=== PATIENT | male | born 1985 | race Caucasian/White ===

== ENCOUNTER 2018-04-24 00:44 | Emergency (ER) | payer OTHER ==
[2018-04-24] MEDS ORDERED: Proparacaine 0.5% Ophth Soln 15 ML Bottle EYEBOTH ONE (00:59)
--- NOTE | 2018-04-24 01:08 | EDM.PDOC ---
ED HPI GENERAL MEDICAL PROBLEM - General Chief Complaint: Eye Problems Stated Complaint: EYES ARE HURTING, WATERING Time Seen by Provider: 04/24/18 00:50 Source of Information: Reports: Patient History Limitations: Reports: No Limitations - History of Present Illness INITIAL COMMENTS - FREE TEXT/NARRATIVE: HISTORY AND PHYSICAL: History of present illness: 32-year-old male presenting department chief complaint of eye irritation bilaterally. Patient states that he woke up to go use the bathroom noticed that his eyes were irritated, watery, and somewhat painful. Denies any foreign bodies that could have been inadvertently caught his eyes. Denies any significant change in vision but states that it is somewhat difficult to keep his eyes open secondary to irritation and pain. Denies any history of eye problems. Lavern denies any chest pain, palpitations, shortness of breath, syncopal episodes, or focal neurologic deficits. On exam bilateral eyes are injected and erythematous. No visual foreign bodies seen on exam. After proparacaine placement forcing stain revealed no significant abnormalities. Review of systems: As per history of present illness and below otherwise all systems reviewed and negative. Past medical history: As per history of present illness and as reviewed below otherwise noncontributory. Surgical history: As per history of present illness and as reviewed below otherwise noncontributory. Social history: No reported history of drug or alcohol abuse. Family history: As per history of present illness and as reviewed below otherwise noncontributory. Physical exam: HEENT: Atraumatic, normocephalic, pupils reactive, bilateral injected erythematous negative for conjunctival pallor or scleral icterus, mucous membranes moist, throat clear, neck supple, nontender, trachea midline. Lungs: Clear to auscultation, breath sounds equal bilaterally, chest nontender. Heart: S1S2, regular, negative for clicks, rubs, or JVD. Abdomen: Soft, nondistended, nontender. Negative for masses or hepatosplenomegaly. Negative for costovertebral tenderness. Pelvis: Stable nontender. Genitourinary: Deferred. Rectal: Deferred. Extremities: Atraumatic, negative for cords or calf pain. Neurovascular unremarkable. Neuro: Awake, alert, oriented. Cranial nerves II through XII unremarkable. Cerebellum unremarkable. Motor and sensory unremarkable throughout. Exam nonfocal. Diagnostics: Fluorescein stain Therapeutics: Proparacaine Erythromycin ophthalmic 3 times a day 7 days Impression: Conjunctivitis I irritation Plan: Please see H&P. No significant abnormalities on exam other than injected bilateral erythematous eyes. Most likely allergic versus viral conjunctivitis. Did give the patient a prescription for erythromycin ophthalmic and told him to follow up with primary care provider. He should return the emergency department if he has any new or worsening symptoms. Definitive disposition and diagnosis as appropriate pending reevaluation and review of above. ED ROS GENERAL - Review of Systems Review Of Systems: ROS reveals no pertinent complaints other than HPI. ED EXAM GENERAL W FULL EYE - Physical Exam Exam: See Below Departure - Departure Time of Disposition: :17 Disposition: Home, Self-Care 01 Condition: Good Clinical Impression: Irritation of both eyes Conjunctivitis, acute, bilateral Qualifiers: Acute conjunctivitis type: unspecified Qualified Code(s): H10.33 - Unspecified acute conjunctivitis, bilateral - Discharge Information Referrals: PCP,None [Primary Care Provider] - Additional Instructions: My general discharge The following information is given to patients seen in the emergency department who are being discharged to home. This information is to outline your options for follow-up care. We provide all patients seen in our emergency department with a follow-up referral. The need for follow-up, as well as the timing and circumstances, are variable depending upon the specifics of your emergency department visit. If you don't have a primary care physician on staff, we will provide you with a referral. We always advise you to contact your personal physician following an emergency department visit to inform them of the circumstance of the visit and for follow-up with them and/or the need for any referrals to a consulting specialist. The emergency department will also refer you to a specialist when appropriate. This referral assures that you have the opportunity for follow-up care with a specialist. All of these measure are taken in an effort to provide you with optimal care, which includes your follow-up. Under all circumstances we always encourage you to contact your private physician who remains a resource for coordinating your care. When calling for follow-up care, please make the office aware that this follow-up is from your recent emergency room visit. If for any reason you are refused follow-up, please contact the [facility] Emergency Department at and asked to speak to the emergency department charge nurse. [facility] [address] [place] [address] [address] Follow-up with primary care provider as needed. Use ophthalmic ointment as directed by prescription. Return to emergency department if any new or worsening symptoms.
== END 2018-04-24 01:26 | disposition home or self-care (01) ==
LOC: MW.ED 00:44
DX: H10.33 Unspecified acute conjunctivitis, bilateral (principal)
CPT/HCPCS: 99283

== ENCOUNTER 2019-03-06 00:21 | Emergency (ER) | payer BC ==
[2019-03-06] MEDS ORDERED: Sodium Chloride 0.9% 2.5 ML Syringe FLUSH PRN (00:50)
[2019-03-06] MEDS ORDERED: Nitroglycerin 0.4 MG Tab.SL SL PRN (00:50)
[2019-03-06] MEDS ORDERED: Aspirin 81 MG Tab.Chew PO ONE (00:50)
[2019-03-06] MEDS ORDERED: Sodium Chloride 0.9% 10 ML Syringe FLUSH PRN (00:50)
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
[2019-03-06 01:08] LABS: CHLORIDE,CL 103 mmol/L (98-107); SODIUM,NA 139 mmol/L (136-148)
--- NOTE | 2019-03-06 01:49 | CR ---
INDICATION: Chest pain TECHNIQUE: Chest radiograph 1 view COMPARISON: None FINDINGS: Severe degradation of image quality noted due to body habitus. Mediastinum: The mediastinum is normal in appearance. The heart silhouette is normal in size and morphology. Lung: Mild bibasilar subsegmental atelectasis is noted. No sign of pleural effusion seen. No pneumothorax is identified. IMPRESSION: 1. Mild bibasilar subsegmental atelectasis is noted. Dictated by: Petey Iniguez MD @ 03/06/2019 01:46:44 (Electronically Signed)
== END 2019-03-06 03:25 | disposition home or self-care (01) ==
LOC: MW.ED 00:21
DX: R07.9 Chest pain, unspecified (principal); R03.0 Elevated blood-pressure reading, without diagnosis of hypertension; E66.9 Obesity, unspecified; F17.210 Nicotine dependence, cigarettes, uncomplicated
CPT/HCPCS: 36415; 71045; 80053; 82150; 83690; 84484; 85025; 85379; 93005; 99285; A9270; 99284

== ENCOUNTER 2019-07-19 16:16 | Emergency (ER) | payer BC ==
[2019-07-19] MEDS ORDERED: Ondansetron 4 MG/2 ML SDV IVPUSH ONE (17:21)
[2019-07-19] MEDS ORDERED: Ketorolac 30 MG/ML SDV IVPUSH ONE (17:21)
[2019-07-19] MEDS ORDERED: Sodium Chloride 0.9% 1,000 ML IV ONE (17:24)
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
[2019-07-19 17:45] LABS: BLOOD UREA NITROGEN,BUN 13 mg/dL (7.0-18.0); POTASSIUM,K 4.1 mmol/L (3.5-5.1)
[2019-07-19 17:57] LABS: CARBON DIOXIDE,CO2 25.5 mmol/L (21.0-32.0); CHLORIDE,CL 104 mmol/L (98-107); GLUCOSE RANDOM 91 mg/dL (74-106); LIPASE 62 U/L (73-393); SODIUM,NA 139 mmol/L (136-148)
[2019-07-19] MEDS ORDERED: Iopamidol 755 Mg/ML 100 ML Bottle IVPUSH STA (19:03)
--- NOTE | 2019-07-19 19:26 | CT ---
INDICATION: Left lower quadrant pain. CT ABDOMEN AND PELVIS WITH CONTRAST TECHNIQUE: Multidetector CT imaging was performed through the abdomen and pelvis following intravenous contrast administration using 100 mL Isovue 370. Coronal and sagittal reconstructions were generated. COMPARISON: None. FINDINGS: Lower chest: Minimal bibasilar lung atelectasis. Liver: Within normal limits. Gallbladder and bile ducts: No gallbladder wall thickening or calcified gallstones. No biliary dilation identified. Pancreas: Unremarkable. Spleen: Normal. Adrenals: No nodules or masses. Kidneys, ureters, and urinary bladder: No renal masses or hydronephrosis. No bladder mass or definite wall thickening. Gastrointestinal tract: Normal caliber bowel without wall thickening or obstruction. The appendix is normal. There is a small ovoid focus of fat stranding just anterior to the proximal sigmoid colon on image 112 of series 201, image 108 of series 204, and image 47 of series 203, consistent with epiploic appendagitis. Vascular structures: Normal for age. Peritoneum: No free air, abscess, or significant free fluid. Lymph nodes: A few upper normal-sized periaortic lymph nodes. No pathologically enlarged nodes identified. Reproductive organs: No pelvic masses. Bones: Normal for age. IMPRESSION: Epiploic appendagitis in the left lower quadrant just anterior to the proximal sigmoid colon. No other acute findings are noted. SUNNI FRIAS MD [employer] Dictated by Mohit Frias MD @ 07/19/2019 7:24:20 PM Dictated by: Mohit Frias MD @ 07/19/2019 19:24:42 (Electronically Signed)
== END 2019-07-19 19:55 | disposition home or self-care (01) ==
LOC: MW.ED 16:16
DX: K63.89 Other specified diseases of intestine (principal); E66.9 Obesity, unspecified; Z68.41 Body mass index [BMI] 40.0-44.9, adult
CPT/HCPCS: 74177; 80053; 81001; 83690; 85025; 96361; 96374; 96375; 99284; J1885; J2405; J7040; Q9967

== ENCOUNTER 2019-09-11 22:16 | Emergency (ER) | payer BC ==
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
== END 2019-09-11 23:00 | disposition home or self-care (01) ==
LOC: MW.ED 22:16
DX: B34.9 Viral infection, unspecified (principal)
CPT/HCPCS: 99283

== ENCOUNTER 2022-06-09 23:26 | Emergency (ER) | payer SELFPAY ==
[2022-06-09] MEDS ORDERED: Albuterol/Ipratropium 3.0-0.5 MG/3 ML Neb Soln NEB ONE (23:48)
[2022-06-10] MEDS ORDERED: Albuterol/Ipratropium 3.0-0.5 MG/3 ML Neb Soln ONE (00:10)
[2022-06-10] MEDS ORDERED: Dexamethasone 10 MG/ML SDV IVPUSH ONE (01:18)
[2022-06-10] MEDS ORDERED: Albuterol 8 GM Inhaler INH ONE (01:18)
[2022-06-10] MEDS ORDERED: Albuterol 8 GM Inhaler ONE (01:24)
[2022-06-10] MEDS ORDERED: Dexamethasone 10 MG/ML SDV ONE (01:24)
== END 2022-06-10 01:36 | disposition home or self-care (01) ==
LOC: MW.ED 23:26
DX: J40 Bronchitis, not specified as acute or chronic (principal); E66.9 Obesity, unspecified
CPT/HCPCS: 71046; 99285; A9270; J1100; 93010; 99283; J7620-GY

== ENCOUNTER 2022-06-25 08:54 | Emergency (ER) | payer SELFPAY ==
[2022-06-25 10:08] LABS: CARBON DIOXIDE,CO2 27.6 mmol/L (21.0-32.0)
== END 2022-06-25 10:38 | disposition home or self-care (01) ==
LOC: MW.ED 08:54
DX: R07.89 Other chest pain (principal); E78.5 Hyperlipidemia, unspecified; I10 Essential (primary) hypertension; F17.200 Nicotine dependence, unspecified, uncomplicated; E66.9 Obesity, unspecified; Z68.42 Body mass index [BMI] 45.0-49.9, adult
CPT/HCPCS: 36415; 71046; 71046-26; 80053; 83690; 84484; 85025; 93005; 99285

== ENCOUNTER 2023-08-17 11:55 | Emergency (ER) | payer BC ==
[2023-08-17] MEDS ORDERED: Morphine 4 MG/ML Syringe IVPUSH ONE (12:35)
[2023-08-17] MEDS ORDERED: Ondansetron 4 MG/2 ML SDV IVPUSH ONE (12:35)
[2023-08-17] MEDS ORDERED: Sodium Chloride 0.9% 1,000 ML IV ONE (12:35)
[2023-08-17 12:48] LABS: BASOPHILS ABSOLUTE AUTO 0.02 K/uL (0.00-0.20); BASOPHILS PERCENT AUTO 0.3 % (0.0-1.0); EOSINOPHILS ABSOLUTE AUTO 0.15 K/uL (0.00-0.45); EOSINOPHILS PERCENT AUTO 2.2 % (0.0-6.0); HEMATOCRIT 46.7 % (42.0-52.0); HEMOGLOBIN 15.7 g/dL (14.0-18.0); IMMATURE GRAN ABSOLUTE AUTO 0.02 K/uL (0.00-0.05); IMMATURE GRAN PERCENT AUTO 0.3 % (0.0-0.4); LYMPHOCYTES ABSOLUTE AUTO 1.55 K/uL (1.00-4.80); LYMPHOCYTES PERCENT AUTO 22.6 % (24.0-44.0); MEAN CORPUSCULAR HEMOGLOBIN 27.6 pg (28.0-32.0); MEAN CORPUSCULAR HGB CONC 33.6 g/dL (32.0-36.0); MEAN CORPUSCULAR VOLUME 82.2 fL (83.0-99.0); MONOCYTES PERCENT AUTO 8.7 % (0.0-8.0); NEUTROPHILS ABSOLUTE AUTO 4.53 K/uL (1.80-7.70); NEUTROPHILS PERCENT AUTO 65.9 % (41.0-71.0); PLATELET COUNT,PLT 191 K/uL (150-400); RED BLOOD CELL COUNT 5.68 M/uL (4.52-5.90); WHITE BLOOD CELL COUNT,WBC 6.87 K/uL (3.9-11.3)
[2023-08-17 13:11] LABS: A/G RATIO 0.9 (0.9-1.6); ALBUMIN 3.8 g/dL (3.4-5.0); BILIRUBIN TOTAL 0.6 mg/dL (0.2-1.0); CALCIUM 9.2 mg/dL (8.5-10.1); CARBON DIOXIDE,CO2 25.9 mmol/L (21.0-32.0); CREATININE 1.1 mg/dL (0.8-1.3); EST CRCL DRUG DOSING (CG) 94.02 mL/min; POTASSIUM,K 3.9 mmol/L (3.5-5.1); PROTEIN TOTAL,TP 7.8 g/dL (6.4-8.2)
[2023-08-17 13:16] LABS: APPEARANCE,URINE CLEAR; BILIRUBIN,URINE NEGATIVE (NEGATIVE); COLOR,URINE YELLOW; GLUCOSE,URINE NEGATIVE (NEGATIVE); KETONES,URINE NEGATIVE (NEGATIVE); LEUKOCYTE ESTERASE,URINE NEGATIVE (NEGATIVE); NITRITE,URINE POSITIVE (NEGATIVE); OCCULT BLOOD,URINE NEGATIVE (NEGATIVE); PROTEIN,URINE NEGATIVE (NEGATIVE); UROBILINOGEN,URINE 0.2 EU/dL (<2.0)
[2023-08-17 13:24] LABS: BACTERIA,URINE OCCASIONAL (NEGATIVE); RBC,URINE 0-2 (0-2/HPF); WBC,URINE 0-2 (0-5/HPF)
[2023-08-17] MEDS ORDERED: cefTRIAXone 1 GM in Sodium Chloride 0.9% 50 ML IV ONE (13:37)
[2023-08-17] MEDS ORDERED: Iopamidol 755 MG/ML 500 ML Multipack Bottle IVPUSH STA (14:04)
== END 2023-08-17 15:52 | disposition home or self-care (01) ==
LOC: MW.ED 11:55
DX: N30.00 Acute cystitis without hematuria (principal); I10 Essential (primary) hypertension; E66.9 Obesity, unspecified; Z68.42 Body mass index [BMI] 45.0-49.9, adult; Z88.1 Allergy status to other antibiotic agents; Z79.899 Other long term (current) drug therapy
CPT/HCPCS: 36415; 74177; 80053; 81001; 85025; 87086; 96374; 96375; 99284; J0696; J2270; J2405; J3490; J7030; Q9967

== ENCOUNTER 2023-09-17 01:42 | Emergency (ER) | payer BC ==
[2023-09-17] MEDS ORDERED: Sodium Chloride 0.9% 2.5 ML Syringe FLUSH PRN (02:36)
[2023-09-17] MEDS ORDERED: Sodium Chloride 0.9% 10 ML Syringe FLUSH PRN (02:36)
[2023-09-17 02:58] LABS: BASOPHILS ABSOLUTE AUTO 0.03 K/uL (0.00-0.20); BASOPHILS PERCENT AUTO 0.3 % (0.0-1.0); EOSINOPHILS ABSOLUTE AUTO 0.23 K/uL (0.00-0.45); EOSINOPHILS PERCENT AUTO 2.6 % (0.0-6.0); HEMATOCRIT 46.8 % (42.0-52.0); HEMOGLOBIN 15.5 g/dL (14.0-18.0); IMMATURE GRAN ABSOLUTE AUTO 0.04 K/uL (0.00-0.05); IMMATURE GRAN PERCENT AUTO 0.5 % (0.0-0.4); LYMPHOCYTES ABSOLUTE AUTO 2.19 K/uL (1.00-4.80); LYMPHOCYTES PERCENT AUTO 24.7 % (24.0-44.0); MEAN CORPUSCULAR HEMOGLOBIN 27.5 pg (28.0-32.0); MEAN CORPUSCULAR HGB CONC 33.1 g/dL (32.0-36.0); MEAN PLATELET VOLUME 10.8 fL (9.4-12.4); MONOCYTES ABSOLUTE AUTO 0.66 K/uL (0.00-0.80); MONOCYTES PERCENT AUTO 7.4 % (0.0-8.0); NEUTROPHILS ABSOLUTE AUTO 5.73 K/uL (1.80-7.70); NEUTROPHILS PERCENT AUTO 64.5 % (41.0-71.0); PLATELET COUNT,PLT 199 K/uL (150-400); RED BLOOD CELL COUNT 5.64 M/uL (4.52-5.90); WHITE BLOOD CELL COUNT,WBC 8.88 K/uL (3.9-11.3)
[2023-09-17 02:59] LABS: APPEARANCE,URINE CLEAR; BILIRUBIN,URINE NEGATIVE (NEGATIVE); COLOR,URINE YELLOW; GLUCOSE,URINE NEGATIVE (NEGATIVE); KETONES,URINE NEGATIVE (NEGATIVE); LEUKOCYTE ESTERASE,URINE NEGATIVE (NEGATIVE); NITRITE,URINE NEGATIVE (NEGATIVE); OCCULT BLOOD,URINE NEGATIVE (NEGATIVE); PROTEIN,URINE NEGATIVE (NEGATIVE); UROBILINOGEN,URINE 0.2 EU/dL (<2.0)
[2023-09-17 03:19] LABS: A/G RATIO 0.9 (0.9-1.6); ALANINE AMINOTRANSFERASE,ALT 52 IU/L (14-63); ALBUMIN 3.8 g/dL (3.4-5.0); ALKALINE PHOSPHATASE 100 U/L (46-116); ASPARTATE AMNIOTRANSFERASE,AST 23 IU/L (15-37); BILIRUBIN TOTAL 0.4 mg/dL (0.2-1.0); BLOOD UREA NITROGEN,BUN 9 mg/dL (7.0-18.0); CALCIUM 8.9 mg/dL (8.5-10.1); CARBON DIOXIDE,CO2 23.9 mmol/L (21.0-32.0); CHLORIDE,CL 102 mmol/L (98-107); CREATININE 1.2 mg/dL (0.8-1.3); GLUCOSE RANDOM 99 mg/dL (74-106); LIPASE 28 U/L (16-77); POTASSIUM,K 3.5 mmol/L (3.5-5.1); PROTEIN TOTAL,TP 7.9 g/dL (6.4-8.2); SODIUM,NA 138 mmol/L (136-148)
[2023-09-17 03:21] LABS: ESTIMATED GFR 79 mL/min (>60)
== END 2023-09-17 03:46 | disposition home or self-care (01) ==
LOC: MW.ED 01:42
DX: R10.9 Unspecified abdominal pain (principal); E78.00 Pure hypercholesterolemia, unspecified; I10 Essential (primary) hypertension; Z79.899 Other long term (current) drug therapy
CPT/HCPCS: 36415; 80053; 81003; 83690; 85025; 99284; J3490; 99283

== ENCOUNTER 2024-07-29 17:48 | Emergency (ER) | payer BC ==
[2024-07-29] MEDS: traMADol 50 MG Tab PO STA (20:10)
== END 2024-07-29 20:15 | disposition home or self-care (01) ==
LOC: MW.ED 17:48
DX: M17.12 Unilateral primary osteoarthritis, left knee (principal); I10 Essential (primary) hypertension; E78.00 Pure hypercholesterolemia, unspecified; Z87.891 Personal history of nicotine dependence; Z79.899 Other long term (current) drug therapy; Z88.1 Allergy status to other antibiotic agents; Z75.8 Other problems related to medical facilities and other health care
CPT/HCPCS: 73562; 99283; A9270

== ENCOUNTER 2025-03-06 15:19 | Emergency (ER) | payer BC | END 2025-03-06 16:49 | disposition home or self-care (01) | LOC: MW.ED 15:19 | DX: J34.0 Abscess, furuncle and carbuncle of nose (principal); I10 Essential (primary) hypertension; E78.00 Pure hypercholesterolemia, unspecified; E66.9 Obesity, unspecified; Z88.0 Allergy status to penicillin; Z79.899 Other long term (current) drug therapy | CPT/HCPCS: 99282; 99283 ==

== ENCOUNTER 2025-06-23 08:52 | Emergency (ER) | payer BC ==
[2025-06-23] MEDS: Amoxicillin/Clavulanate K 875-125 MG Tab PO ONE (10:13)
[2025-06-23] MEDS: Acetaminophen/HYDROcodone 325-5 MG Tab PO ONE (10:13)
== END 2025-06-23 10:17 | disposition home or self-care (01) ==
LOC: MW.ED 08:52
DX: J32.9 Chronic sinusitis, unspecified (principal); I10 Essential (primary) hypertension; E78.00 Pure hypercholesterolemia, unspecified; E66.9 Obesity, unspecified; Z68.42 Body mass index [BMI] 45.0-49.9, adult; Z88.1 Allergy status to other antibiotic agents; Z79.82 Long term (current) use of aspirin
CPT/HCPCS: 99282; A9270; 99283